=== PATIENT | male | born 1930 | race Caucasian/White ===

== ENCOUNTER 2016-04-18 12:35 | Emergency (ER) | payer OTHER ==
[~2016-04-18] VITALS: Ht 167.6 cm; Wt 63.5 kg
[2016-04-18 20:31] VITALS: BP 138/72
== END 2016-04-18 21:07 | disposition home or self-care (01) ==
LOC: ER 12:37
DX: S13.4XXA Sprain of ligaments of cervical spine, initial encounter (principal); M47.892 Other spondylosis, cervical region; I10 Essential (primary) hypertension; F03.90 Unspecified dementia, unspecified severity, without behavioral disturbance, psychotic disturbance, mood disturbance, and anxiety; W19.XXXA Unspecified fall, initial encounter; Y93.89 Activity, other specified; Y99.8 Other external cause status; Y92.89 Other specified places as the place of occurrence of the external cause
CPT/HCPCS: 72125; 82962; 93005; 94761

== ENCOUNTER 2016-05-01 13:18 | Emergency (ER) | payer OTHER ==
[~2016-05-01] VITALS: Ht 160 cm; Wt 57.6 kg
[2016-05-01 13:55] VITALS: BP 128/99
== END 2016-05-01 15:28 | disposition home or self-care (01) ==
LOC: ER 13:18
DX: S50.02XA Contusion of left elbow, initial encounter (principal); I10 Essential (primary) hypertension; W19.XXXA Unspecified fall, initial encounter; Y93.89 Activity, other specified; Y99.8 Other external cause status; Y92.091 Bathroom in other non-institutional residence as the place of occurrence of the external cause
CPT/HCPCS: 73080